=== PATIENT | female | born 1955 | race Caucasian/White ===

== ENCOUNTER → 2017-05-07 | Outpatient (CLI) | payer OTHER ==
[2014-12-05 10:10] VITALS: BP 136/79
[~2017-05-07] MED LIST: AMOXICILLIN 8751 TAB PO; ANUSOL-HC25 MG RC; NORCO 325 MG-51 TAB PO
== END ==
LOC: MAMMO 14:37
DX: Z12.31 Encounter for screening mammogram for malignant neoplasm of breast (principal)
CPT/HCPCS: G0202

== ENCOUNTER → 2017-06-03 | Day surgery (SDC) | payer OTHER ==
[2014-12-05 10:10] VITALS: BP 136/79
== END ==
LOC: MSO 07:19
DX: K21.9 Gastro-esophageal reflux disease without esophagitis (principal); K44.9 Diaphragmatic hernia without obstruction or gangrene; R13.10 Dysphagia, unspecified; Z12.11 Encounter for screening for malignant neoplasm of colon; R03.0 Elevated blood-pressure reading, without diagnosis of hypertension; E78.5 Hyperlipidemia, unspecified; K57.30 Diverticulosis of large intestine without perforation or abscess without bleeding
CPT/HCPCS: 00810; J0461; J3490; J7120

== ENCOUNTER → 2018-04-14 | Outpatient (CLI) | payer OTHER ==
[2014-12-05 10:10] VITALS: BP 136/79
== END ==
LOC: RAD 09:15
DX: K76.0 Fatty (change of) liver, not elsewhere classified (principal); R16.0 Hepatomegaly, not elsewhere classified; N28.1 Cyst of kidney, acquired; N85.8 Other specified noninflammatory disorders of uterus; Z90.49 Acquired absence of other specified parts of digestive tract; Z87.19 Personal history of other diseases of the digestive system; Z90.89 Acquired absence of other organs; Z98.890 Other specified postprocedural states

== ENCOUNTER → 2019-09-01 | Outpatient (CLI) | payer OTHER ==
[2014-12-05 10:10] VITALS: BP 136/79
== END ==
LOC: MAMMO 14:30
DX: Z12.31 Encounter for screening mammogram for malignant neoplasm of breast (principal)

== ENCOUNTER → 2021-04-18 | Outpatient (CLI) | payer MEDICARE, OTHER | LOC: MAMMO 11:00 | DX: Z12.31 Encounter for screening mammogram for malignant neoplasm of breast (principal) ==

== ENCOUNTER → 2022-03-16 | Outpatient (CLI) | payer MEDICARE, OTHER | LOC: MAMMO 09:17 → RAD 09:17 → MAMMO 09:30 | DX: M85.852 Other specified disorders of bone density and structure, left thigh (principal); M85.851 Other specified disorders of bone density and structure, right thigh ==

== ENCOUNTER → 2022-05-15 | Outpatient (CLI) | payer MEDICARE, OTHER | LOC: MAMMO 12:48 | DX: Z12.31 Encounter for screening mammogram for malignant neoplasm of breast (principal) ==

== ENCOUNTER → 2023-03-25 | Outpatient (CLI) | payer MEDICARE, OTHER | LOC: RAD 10:58 | DX: M25.511 Pain in right shoulder (principal); G89.29 Other chronic pain ==

== ENCOUNTER → 2023-05-16 | Outpatient (CLI) | payer MEDICARE, OTHER | LOC: MAMMO 08:51 | DX: Z12.31 Encounter for screening mammogram for malignant neoplasm of breast (principal) ==

== ENCOUNTER → 2023-11-11 | Outpatient (CLI) | payer MEDICARE | LOC: RAD 10:13 → MAMMO 10:30 | DX: Z13.820 Encounter for screening for osteoporosis (principal); M85.852 Other specified disorders of bone density and structure, left thigh; M85.851 Other specified disorders of bone density and structure, right thigh; Z78.0 Asymptomatic menopausal state ==

== ENCOUNTER → 2024-07-01 | Outpatient (CLI) | payer MEDICARE | LOC: RAD 09:10 | DX: M25.511 Pain in right shoulder (principal) ==

== ENCOUNTER 2024-07-23 10:46 | Emergency (ER) | payer MEDICARE ==
[~2024-07-23] VITALS: Ht 170.2 cm; Wt 100.1 kg
[2024-07-23] MEDS ORDERED: PRILOSEC 20MG20 MG PO (11:05)
[2024-07-23] MEDS ORDERED: FAMOTIDINE40 M1 PO (11:05)
[2024-07-23] MEDS ORDERED: LOSARTAN POTAS100 MG PO (11:05)
[2024-07-23] MEDS ORDERED: ATORVASTATIN CA10 MG PO (11:05)
[2024-07-23 12:22] VITALS: BP 170/98
== END 2024-07-23 12:22 | disposition home or self-care (01) ==
LOC: ED 10:46
DX: S06.9X9A Unspecified intracranial injury with loss of consciousness of unspecified duration, initial encounter (principal); S16.1XXA Strain of muscle, fascia and tendon at neck level, initial encounter; W00.0XXA Fall on same level due to ice and snow, initial encounter; Y92.480 Sidewalk as the place of occurrence of the external cause